=== PATIENT | female | born 1990 | race Caucasian/White ===

== ENCOUNTER 2020-01-01 20:03 | Emergency (ER) | payer OTHER ==
[2020-01-01 21:01] LABS: EOSINOPHILS % (AUTO) 0.7 %; HGB - HEMOGLOBIN 12.7 g/dL (12.0-16.0); LYMPHOCYTES # (AUTO) 0.7 10^3/uL (1.5-3.5); LYMPHOCYTES % (AUTO) 21.4 %; MEAN CORPUSCULAR HEMOGLOBIN 30.3 pg (27.0-31.0); MEAN CORPUSCULAR HGB CONC 33.3 g/dL (32.0-36.0); MEAN CORPUSCULAR VOLUME 90.9 fL (81.0-99.0); MEAN PLATELET VOLUME 11.2 fL (7.9-10.8); MONOCYTES # (AUTO) 0.6 10^3/uL (0.0-1.0); MONOCYTES % (AUTO) 20.4 %; NEUTROPHILS # (AUTO) 1.7 10^3/uL (1.5-6.6); NEUTROPHILS % (AUTO) 56.2 %; PLT - PLATELET COUNT 168 10^3/uL (130-450); RED BLOOD COUNT 4.19 10^6/uL (4.20-5.40); RED CELL DISTRIBUTION WIDTH 11.8 % (12.0-15.0)
[2020-01-01 21:02] LABS: GLUCOSE, URINE (UA) NEGATIVE (NEGATIVE); KETONES,URINE (UA) NEGATIVE (NEGATIVE); LEUKOCYTE ESTERASE, URINE NEGATIVE (NEGATIVE); NITRITE,URINE NEGATIVE (NEGATIVE); OCCULT BLOOD,URINE LARGE (NEGATIVE); PH,URINE 6.5 PH (5.0-7.5); PROTEIN,URINE 100 mg/dL (NEGATIVE); UROBILINOGEN,URINE 1 (NORMAL) E.U./dL (NORMAL)
[2020-01-01] MEDS ORDERED: KETOROLAC 30 MG/ML VIAL IVP STA (21:02)
[2020-01-01 21:03] LABS: CLARITY,URINE CLEAR (CLEAR); HCG UR QUAL NEGATIVE
[2020-01-01 21:05] LABS: BILIRUBIN,URINE NEGATIVE (NEGATIVE); ICTOTEST,URINE NEGATIVE
--- NOTE | 2020-01-01 21:05 | ED Physician Documentation ---
History of Present Illness - Stated complaint Stated Complaint: FEMALE - Chief complaint Chief Complaint: Abd Pain - History obtained from History obtained from: Patient - History of Present Illness Timing: Today Pain level max: 5 Pain level now: 4 - Additonal information Additional information: Patient states she had a recent sexual encounter with a new partner. Since then has "milky" vaginal discharge and lower abdominal pain. No itching. Nothing makes it better or worse. Has had diarrhea. Review of Systems Ten Systems: 10 systems reviewed and negative Constitutional: denies: Fever, Chills Nose: denies: Rhinorrhea / runny nose, Congestion Respiratory: denies: Cough GI: reports: Diarrhea. denies: Nausea, Vomiting : reports: Dysuria, Frequency. denies: Hesitancy, Now EGA Skin: denies: Rash Musculoskeletal: denies: Neck pain, Back pain Neurologic: denies: Focal weakness, Numbness, Headache PD PAST MEDICAL HISTORY - Past Medical History Past Medical History: No Cardiovascular: None Respiratory: None Neuro: None Endocrine/Autoimmune: None GI: None PATIENT RESOURCE SPECIALIST: None : None HEENT: None Psych: Depression, Anxiety Musculoskeletal: None Derm: None - Past Surgical History Past Surgical History: No /PATIENT RESOURCE SPECIALIST: Tubal ligation - Present Medications Home Medications: Ambulatory Orders Medication Instructions Recorded Confirmed Albuterol Sulfate [Proventil Hfa 1 - 2 puffs IH Q4H PRN #1 02/20/16 Inhaler] [email or web address] Azithromycin [Zithromax] 250 mg PO DAILY #6 tablet 02/20/16 - Allergies Allergies/Adverse Reactions: Allergies Allergy/AdvReac Type Severity Reaction Status Date / Time No Known Drug Allergies Allergy Verified 01/01/20 20:29 - Social History Does the pt smoke?: No Smoking Status: Never smoker Does the pt drink ETOH?: Yes ETOH Use: Wine, Liquor Does the pt have substance abuse?: No Substance Use and Type: Marijuana - Immunizations Immunizations are current?: Yes PD ED PE NORMAL - Vitals Vital signs reviewed: Yes - General General: Alert and oriented X 3, No acute distress, Well developed/nourished - HEENT HEENT: Moist mucous membranes - Neck Neck: Supple, no meningeal sign - Cardiac Cardiac: RRR, Strong equal pulses - Respiratory Respiratory: No respiratory distress, Clear bilaterally - Abdomen Abdomen: Soft, Non distended, Other (Tender to palpation over the bladder and uterus.) - Female Female : Other (Clear discharge from the cervical loss along with irritation of the cervix. Positive cervical motion tenderness. Positive adnexal tenderness bilaterally.) - Back Back: No CVA TTP - Derm Derm: Warm and dry - Extremities Extremities: No edema - Neuro Neuro: Alert and oriented X 3 Results - Vitals Vitals: Vital Signs - 24 hr 01/01/20 01/01/20 01/01/20 20:24 21:03 22:09 Temperature 37.3 C 37.7 C H 37.8 C H Heart Rate 98 78 18 L Respiratory 14 18 18 Rate Blood Pressure 121/90 H 122/79 127/78 O2 Saturation 97 100 96 Oxygen O2 Source Room air - Labs Labs: Microbiology 01/01/20 21:12 Wet Prep - Final Genital - Vaginal Laboratory Tests 01/01/20 01/01/20 01/01/20 20:45 20:55 20:55 WBC 3.0 L RBC 4.19 L Hgb 12.7 Hct 38.1 MCV 90.9 MCH 30.3 MCHC 33.3 RDW 11.8 L Plt Count 168 MPV 11.2 H Neut # (Auto) 1.7 Lymph # (Auto) 0.7 L [place] # (Auto) 0.6 Eos # (Auto) 0.0 Baso # (Auto) 0.0 Absolute Nucleated RBC 0.00 Nucleated RBC % 0.0 Sodium 139 Potassium 3.4 L Chloride 107 Carbon Dioxide 27 Anion Gap 5.0 L BUN 12 Creatinine 0.9 Estimated GFR (MDRD) 74 L Glucose 91 Calcium 8.7 Total Bilirubin 0.7 AST 18 ALT 17 Alkaline Phosphatase 32 L Total Protein 6.4 L Albumin 3.7 Globulin 2.7 Albumin/Globulin Ratio 1.4 Lipase 28 Urine Color BROWN Urine Clarity CLEAR Urine pH 6.5 Ur Specific [place] 1.020 Urine Protein 100 H Urine Glucose (UA) NEGATIVE Urine Ketones NEGATIVE Urine Occult Blood LARGE H Urine Nitrite NEGATIVE Urine Bilirubin NEGATIVE Urine Urobilinogen 1 (NORMAL) Ur Leukocyte Esterase NEGATIVE Urine RBC 11-25 H Urine WBC 6-10 H Ur Squamous Epith Cells RARE Squamous Urine Bacteria Few Ur Microscopic Review INDICATED Urine Culture Comments INDICATED Urine HCG, Qual NEGATIVE PD MEDICAL DECISION MAKING - ED course Complexity details: reviewed results, re-evaluated patient, considered differential, d/w patient ED course: Patient with what appears to be likely PID. Likely early. Possible urethritis. Given Rocephin and azithromycin. We will see how she progresses. Testing was sent for gonorrhea and chlamydia. Patient is otherwise well-appearing, n ontoxic. Afebrile. If she is not fully improved, would consider giving doxycycline for a longer course of treatment. Patient counseled regarding signs and symptoms for which I believe and urgent re-evaluation would be necessary. Patient with good understanding of and agreement to plan and is comfortable going home at this time This document was made in part using voice recognition software. While efforts are made to proofread this document, sound alike and grammatical errors may occur. Departure - Departure Disposition: 01 Home, Self Care Clinical Impression: Pelvic pain Condition: Good Instructions: ED Pelvic Pain [facility] Follow-Up: KADEN WEBBER [Primary Care Provider] - Within 1 week Comments: Return if you worsen. You have been tested for gonorrhea and chlamydia tonight. We will call you if these are positive. If they are positive you will need to have any sexual partners tested and treated as well. Discharge Date/Time: 01/01/20 22:11
[2020-01-01 21:08] LABS: BACTERIA,URINE Few /HPF (None Seen); SQUAMOUS EPITHELIAL CELL,UR RARE Squamous (<= Few)
[2020-01-01 21:12] LABS: ALBUMIN 3.7 g/dL (3.2-5.5); ALBUMIN/GLOBULIN RATIO 1.4 (1.0-2.2); BILIRUBIN,TOTAL 0.7 mg/dL (0.2-1.0); CALCIUM 8.7 mg/dL (8.5-10.3); CREATININE 0.9 mg/dL (0.4-1.0); TOTAL PROTEIN 6.4 g/dL (6.7-8.2)
[2020-01-01] MEDS ORDERED: AZITHROMYCIN 250 MG TABLET PO STA (21:27)
[2020-01-01] MEDS ORDERED: cefTRIAXone 1 GM VIAL IVP STA (21:27)
[2020-01-01 22:10] VITALS: BP 127/78
== END 2020-01-01 22:11 | disposition home or self-care (01) ==
LOC: ED 20:03
DX: R10.2 Pelvic and perineal pain (principal); Z20.2 Contact with and (suspected) exposure to infections with a predominantly sexual mode of transmission
CPT/HCPCS: 36415; 80053; 81001; 81025; 81599; 83690; 85025; 87086; 87210; 96374; 96375; 99283; 99284; A9270; 81003; 87491; 87591; 87661

== ENCOUNTER 2021-08-25 17:31 | Emergency (ER) | payer OTHER ==
[2021-08-25] MEDS ORDERED: ACETAMINOPHEN 325 MG TABLET PO STA (17:57)
--- NOTE | 2021-08-25 18:29 | XRAY Report ---
PROCEDURE: Chest 1 View X-Ray INDICATIONS: cough and fever TECHNIQUE: One view of the chest was acquired. COMPARISON: None FINDINGS: Surgical changes and devices: None. Lungs and pleura: No pleural effusions or pneumothorax. Lungs are clear. Mediastinum: Mediastinal contours appear normal. Heart size is normal. Bones and chest wall: No suspicious bony lesions. Overlying soft tissues appear unremarkable. IMPRESSION: No acute pulmonary process. Reviewed by: Madelin Gaines MD on 08/25/2021 5:28 PM [facility]HEL[facility] Approved by: Madelin Gaines MD on 08/25/2021 5:28 PM OPHELIA Station ID: [id number]
[2021-08-25 19:26] LABS: BILIRUBIN,URINE NEGATIVE (NEGATIVE); GLUCOSE, URINE (UA) NEGATIVE (NEGATIVE); KETONES,URINE (UA) NEGATIVE (NEGATIVE); LEUKOCYTE ESTERASE, URINE NEGATIVE (NEGATIVE); NITRITE,URINE NEGATIVE (NEGATIVE); OCCULT BLOOD,URINE LARGE (NEGATIVE); PROTEIN,URINE >=300 mg/dL (NEGATIVE); UROBILINOGEN,URINE 0.2 (NORMAL) E.U./dL (NORMAL)
[2021-08-25 19:27] LABS: CLARITY,URINE HAZY (CLEAR)
[2021-08-25 19:29] LABS: HCG UR QUAL NEGATIVE
[2021-08-25 19:32] LABS: RAPID STREP SCREEN Negative (Negative)
[2021-08-25 19:35] LABS: BACTERIA,URINE Rare /HPF (None Seen); RBC,URINE TNTC /HPF (0-5); SQUAMOUS EPITHELIAL CELL,UR RARE Squamous (<= Few)
--- NOTE | 2021-08-25 19:35 | ED Physician Documentation ---
History of Present Illness - Stated complaint Stated Complaint: BODY ACHES,FEVER,COUGH - Chief complaint Chief Complaint: General - History obtained from History obtained from: Patient - Additonal information Additional information: Patient is a 30-year-old female with no significant past medical history presenting for evaluation of fever since last Wednesday (5 days), body aches and nonproductive cough.Patient is not vaccinated for COVID. She took a home COVID test on which was negative. She has continued to work.Due to having continued fever and having to go to work she is presenting to the emergency department for an evaluation. She last used an antipyretic at 4:00 this morning. She does report improvement in her symptoms when she does use Tylenol. She denies chest pain, difficulty breathing, abdominal pain, vomiting, diarrhea, dysuria. She denies vaginal discharge. She is currently on her menstrual cycle.She denies any known sick contacts. Review of Systems Constitutional: reports: Fever, Myalgias Nose: reports: Congestion Throat: reports: Sore throat Cardiac: denies: Chest pain / pressure Respiratory: reports: Cough. denies: Dyspnea GI: denies: Abdominal Pain, Vomiting : reports: Vaginal bleeding (On menses). denies: Dysuria, Hematuria Skin: denies: Rash Musculoskeletal: denies: Neck pain, Back pain Neurologic: denies: Syncope, Headache PD PAST MEDICAL HISTORY - Past Medical History Cardiovascular: None Respiratory: None Neuro: None Endocrine/Autoimmune: None GI: None PEOPLESOFT PROGRAMMER: None : None HEENT: None Psych: Depression, Anxiety Musculoskeletal: None Derm: None - Past Surgical History Past Surgical History: No /PEOPLESOFT PROGRAMMER: Tubal ligation - Present Medications Home Medications: Ambulatory Orders Medication Instructions Recorded Confirmed Albuterol Sulfate [Proventil Hfa 1 - 2 puffs IH Q4H PRN #1 02/20/16 Inhaler] [email or web address] Azithromycin [Zithromax] 250 mg PO DAILY #6 tablet 02/20/16 - Allergies Allergies/Adverse Reactions: Allergies Allergy/AdvReac Type Severity Reaction Status Date / Time No Known Drug Allergies Allergy Verified 01/01/20 20:29 - Social History Does the pt smoke?: No Smoking Status: Never smoker Does the pt drink ETOH?: Yes Does the pt have substance abuse?: No - Immunizations Immunizations are current?: Yes PD ED PE NORMAL - General General: Alert and oriented X 3, No acute distress, Well developed/nourished - HEENT HEENT: Atraumatic, PERRL, EOMI, Moist mucous membranes, Pharynx benign (No oral abscess or exudate,) - Neck Neck: Supple, no meningeal sign - Cardiac Cardiac: RRR, No murmur, Strong equal pulses - Respiratory Respiratory: No respiratory distress, Clear bilaterally - Abdomen Abdomen: Normal bowel sounds, Soft, Non tender, Non distended - Back Back: No CVA TTP - Derm Derm: Normal color, No rash - Extremities Extremities: No edema - Neuro Neuro: Alert and oriented X 3, Normal speech - Psych Psych: Normal mood, Normal affect Results - Vitals Vitals: Vital Signs - 24 hr 08/25/21 08/25/21 08/25/21 17:50 17:54 19:54 Temperature 39.4 C H 39.4 C H 37.6 C Heart Rate 110 H 110 H 98 Respiratory 18 18 16 Rate Blood Pressure 143/78 H 143/78 H 132/90 H O2 Saturation 100 100 98 Oxygen O2 Source Room air - Labs Labs: Laboratory Tests 08/25/21 08/25/21 08/25/21 19:16 19:16 19:16 Urine Color DARK YELLOW Urine Clarity HAZY Urine pH 6.0 Ur Specific [place] 1.020 Urine Protein >=300 H Urine Glucose (UA) NEGATIVE Urine Ketones NEGATIVE Urine Occult Blood LARGE H Urine Nitrite NEGATIVE Urine Bilirubin NEGATIVE Urine Urobilinogen 0.2 (NORMAL) Ur Leukocyte Esterase NEGATIVE Urine RBC TNTC H Urine WBC 0-3 Ur Squamous Epith Cells RARE Squamous Urine Bacteria Rare Ur Microscopic Review INDICATED Urine Culture Comments NOT INDICATED Urine HCG, Qual NEGATIVE SARS-CoV-2 (PCR) DETECTED A Group A Strep Rapid Negative PD MEDICAL DECISION MAKING - ED course Complexity details: reviewed results, re-evaluated patient, d/w patient ED course: Patient is a 30-year-old female presenting for evaluation of fever for 5 days. She is febrile and tachycardic and does meet sepsis criteria but does not appear septic. Given her constellation of symptoms I suspect viral etiology. Strep swab sent as patient reports sore throat although pharyngeal exam is benign. Strep swab is negative. Urinalysis also negative for infection. Patient has no abdominal tenderness. Chest x-ray is clear and does not have signs of infiltrate. Patient's COVID swab is positive. Her oxygenation saturations are normal. She does not appear labored in her breathing. As her symptoms have been present for At least 5 days she is not a candidate for oral antivirals. Patient also does not have Any known risk factors to consider her high risk for progression to severe disease. Patient was counseled regarding continuing with supportive care. Her tachycardia improved with fever control. She is able to hydrate orally.Patient is aware of return precautions as well as quarantine recommendations per current CDC guidelines. Departure - Departure Disposition: 01 Home, Self Care Clinical Impression: COVID-19 Condition: Stable Instructions: COVID-19 [facility] Comments: Brandi - You were evaluated today for a fever and found to have COVID-19. Fortunately your oxygen saturations are normal and you do not require being hospitalized.Please continue using Motrin or Tylenol to control your fevers and staying hydrated. Please go to the following website For the latest information regarding your quarantine period. https://www.cdc.gov/coronavirus/2019-ncov/your-health/quarantine-isolation.html If anytime it feels that you have worsening breathing, Feel dizzy, chest pain, have any concerns please return to the emergency department. Forms: Activity restrictions Discharge Date/Time: 08/25/21 20:49
[2021-08-25 19:36] LABS: WBC,URINE 0-3 /HPF (0-5)
[2021-08-25 20:41] VITALS: BP 132/90
== END 2021-08-25 20:49 | disposition home or self-care (01) ==
LOC: ED 17:31
DX: U07.1 COVID-19 (principal)
CPT/HCPCS: 71045; 81001; 81025; 87070; 87430; 87635; 99282; 99284; A9270; 81003; 87086

== ENCOUNTER 2023-07-17 03:03 | Emergency (ER) | payer OTHER ==
[2023-07-17 03:27] VITALS: O2SAT 99
[2023-07-17 03:40] LABS: BILIRUBIN,URINE MODERATE (NEGATIVE); GLUCOSE, URINE (UA) NEGATIVE (NEGATIVE); KETONES,URINE (UA) 15 mg/dL (NEGATIVE); LEUKOCYTE ESTERASE, URINE TRACE (NEGATIVE); NITRITE,URINE POSITIVE (NEGATIVE); OCCULT BLOOD,URINE LARGE (NEGATIVE); PH,URINE 6.5 PH (5.0-7.5); PROTEIN,URINE >=300 mg/dL (NEGATIVE); UROBILINOGEN,URINE 4 E.U./dL (NORMAL)
[2023-07-17 03:52] LABS: CLARITY,URINE CLOUDY (CLEAR); RAPID STREP SCREEN Negative (Negative)
--- NOTE | 2023-07-17 03:52 | ED Physician Documentation ---
PD HPI HEENT - Stated complaint Stated Complaint: FEVER/SORE THROAT/BACK PX - Chief complaint Chief Complaint: Heent - History obtained from History obtained from: Patient - Additional information Additional information: HPI from patient. Patient complains of fever, low back pain (across the lower back), sore throat, generalized headache, bilateral ear pain, and burning dysuria. These symptoms started 2 days ago. Tmax at home was 101.4 (temporal). Denies cough, denies dyspnea, denies abdominal pain, denies n/v. Review of Systems Constitutional: reports: Fever, Chills, Sweats Respiratory: denies: Dyspnea, Cough GI: denies: Abdominal Pain, Nausea, Vomiting : reports: Dysuria PD PAST MEDICAL HISTORY - Past Medical History Past Medical History: Yes Cardiovascular: None Respiratory: None Neuro: None Endocrine/Autoimmune: None GI: None CONTRACT IMPLEMENTATION ANALYST: None : Other HEENT: None Psych: Depression, Anxiety Musculoskeletal: None Derm: None Other Past Medical History: UTI - Past Surgical History Past Surgical History: No /CONTRACT IMPLEMENTATION ANALYST: Tubal ligation - Present Medications Home Medications: Ambulatory Orders Medication Instructions Recorded Confirmed Ciprofloxacin HCl [Cipro] 500 mg PO BID #14 tablet 07/17/23 - Allergies Allergies/Adverse Reactions: Allergies Allergy/AdvReac Type Severity Reaction Status Date / Time No Known Drug Allergies Allergy Verified 07/17/23 03:25 - Social History Does the pt smoke?: No Smoking Status: Never smoker Does the pt drink ETOH?: Yes Does the pt have substance abuse?: No - Immunizations Immunizations are current?: Yes - POLST Patient has POLST: No PD ED PE NORMAL - Vitals Vital signs reviewed: Yes - General General: Alert and oriented X 3, No acute distress, Well developed/nourished - Neck Neck: Supple, no meningeal sign - Cardiac Cardiac: RRR, No murmur - Respiratory Respiratory: No respiratory distress, Clear bilaterally - Abdomen Abdomen: Soft, Non tender, Non distended - Back Back: No CVA TTP PD ED PE EXPANDED - HEENT HEENT: Pharyngeal erythema (mild symmetric posterior oropharyngeal erythema and edema without exudate) Results - Vitals Vitals: Vital Signs - 24 hr 07/17/23 07/17/23 07/17/23 03:21 04:53 04:55 Temperature 38.1 C H 37.7 C 37.7 C Heart Rate 120 H 96 Respiratory 18 16 Rate Blood Pressure 133/84 H 127/73 O2 Saturation 99 99 Oxygen O2 Source Room air - Labs Labs: Laboratory Tests 07/17/23 07/17/23 07/17/23 03:30 03:30 03:30 Urine Color BROWN Urine Clarity CLOUDY Urine pH 6.5 Ur Specific [place] 1.025 Urine Protein >=300 H Urine Glucose (UA) NEGATIVE Urine Ketones 15 H Urine Occult Blood LARGE H Urine Nitrite POSITIVE H Urine Bilirubin MODERATE H Urine Urobilinogen 4 H Ur Leukocyte Esterase TRACE H Urine RBC TNTC H Urine WBC 6-10 H Urine WBC Clumps PRESENT Ur Squamous Epith Cells FEW Squamous Amorphous Sediment Marked Urine Bacteria Moderate H Urine Casts 3-5 RBC Casts Ur Microscopic Review INDICATED Urine Culture Comments INDICATED Urine HCG, Qual Nasal Adenovirus (PCR) NOT DETECTED Nasal B. parapertussis DNA (PCR) NOT DETECTED Nasal Coronavir 229E PCR NOT DETECTED Nasal Coronavir HKU1 PCR NOT DETECTED Nasal Coronavir NL63 PCR NOT DETECTED Nasal Coronavir OC43 PCR NOT DETECTED Nasal Enterovir/Rhinovir PCR NOT DETECTED Nasal Influenza B PCR NOT DETECTED Nasal Influenza A PCR NOT DETECTED Nasal Parainfluen 1 PCR NOT DETECTED Nasal Parainfluen 2 PCR NOT DETECTED Nasal Parainfluen 3 PCR NOT DETECTED Nasal Parainfluen 4 PCR NOT DETECTED Nasal RSV (PCR) NOT DETECTED Nasal B.pertussis DNA PCR NOT DETECTED Nasal C.pneumoniae (PCR) NOT DETECTED Joe Human Metapneumo PCR NOT DETECTED Nasal M.pneumoniae (PCR) NOT DETECTED Nasal SARS-CoV-2 (PCR) NOT DETECTED Group A Strep Rapid Negative 07/17/23 03:30 Urine Color Urine Clarity Urine pH Ur Specific [place] Urine Protein Urine Glucose (UA) Urine Ketones Urine Occult Blood Urine Nitrite Urine Bilirubin Urine Urobilinogen Ur Leukocyte Esterase Urine RBC Urine WBC Urine WBC Clumps Ur Squamous Epith Cells Amorphous Sediment Urine Bacteria Urine Casts Ur Microscopic Review Urine Culture Comments Urine HCG, Qual NEGATIVE Nasal Adenovirus (PCR) Nasal B. parapertussis DNA (PCR) Nasal Coronavir 229E PCR Nasal Coronavir HKU1 PCR Nasal Coronavir NL63 PCR Nasal Coronavir OC43 PCR Nasal Enterovir/Rhinovir PCR Nasal Influenza B PCR Nasal Influenza A PCR Nasal Parainfluen 1 PCR Nasal Parainfluen 2 PCR Nasal Parainfluen 3 PCR Nasal Parainfluen 4 PCR Nasal RSV (PCR) Nasal B.pertussis DNA PCR Nasal C.pneumoniae (PCR) Joe Human Metapneumo PCR Nasal M.pneumoniae (PCR) Nasal SARS-CoV-2 (PCR) Group A Strep Rapid PD Medical Decision Making - ED course Complexity details: considered differential, d/w patient ED course: Rapid strep is negative. Respiratory PCR panel is negative for the viruses tested on this panel. Urine HCG negative. Urinalysis has a number of abnormalities including positive for nitrites, with microscopy positive for red blood cells, white blood cells in clumps, and moderate bacteria without squamous cells. She is entirely nontender on abdominal exam. At this point, I suspect that her symptoms are due to a UTI that has ascended to pyelonephritis which, in turn, would account for the fever and the generalized/systemic symptoms. She does not have any significant CVA tenderness and is in NAD and thus will treat as early pyelonephritis with antibiotics. She is given the first dose of ciprofloxacin in the emergency department and I have electronically submitted a prescription for a 1-week course of Cipro to the patient's pharmacy of choice. Return precautions were reviewed. Departure - Departure Disposition: 01 Home, Self Care Clinical Impression: Pyelonephritis Condition: Good Instructions: ED Kidney Infec Female Prescriptions: Ciprofloxacin HCl [Cipro] 500 mg PO BID #14 tablet Comments: You tested negative for strep throat. The nasal swab tested negative for a number of viruses that are tested on our viral panel, including COVID and influenza. Your urinalysis had a number of abnormalities which suggest a urinary tract infection. Simple bladder infections would not cause fever and thus I suspect you might be in the early stages of a kidney infection, which typically starts in the bladder and works its way up to one or both kidneys. To treat this infection, you were given the first dose of an antibiotic (ciprofloxacin) in the emergency department, and I have electronically submitted a prescription for a 1-week course of this antibiotic to the [facility] pharmacy in [place]. Forms: PCP List Discharge Date/Time: 07/17/23 05:00
[2023-07-17 03:53] LABS: AMORPHOUS SEDIMENT,UR Marked /LPF; BACTERIA,URINE Moderate /HPF (None Seen); RBC,URINE TNTC /HPF (0-5); SQUAMOUS EPITHELIAL CELL,UR FEW Squamous (<= Few); WBC CLUMPS,URINE PRESENT
[2023-07-17 03:54] LABS: CASTS, URINE 3-5 RBC Casts /LPF
[2023-07-17 04:30] LABS: B. PARAPERTUSSIS- RESP PCR PAN NOT DETECTED; B. PERTUSSIS- RESP PCR PANEL NOT DETECTED; C. PNEUMONIAE- RESP PCR PANEL NOT DETECTED; CORONAVIRUS 229E-RESP PCR NOT DETECTED; CORONAVIRUS HKU1-RESP PCR NOT DETECTED; CORONAVIRUS NL63-RESP PCR NOT DETECTED; CORONAVIRUS OC43-RESP PCR NOT DETECTED; HUMAN METAPNEUMOVIRUS NOT DETECTED; INFLUENZA A- RESP PCR PANEL NOT DETECTED; INFLUENZA B - RESP PCR PANEL NOT DETECTED; M. PNEUMONIAE- RESP PCR PANEL NOT DETECTED; PARAINFLUENZA VIRUS 1 NOT DETECTED; PARAINFLUENZA VIRUS 2 NOT DETECTED; PARAINFLUENZA VIRUS 3 NOT DETECTED; PARAINFLUENZA VIRUS 4 NOT DETECTED; RHINOVIRUS/ENTEROVIRUS NOT DETECTED; RSV- RESP PCR PANEL NOT DETECTED; SARS-CoV-2 -RESP PCR PANEL NOT DETECTED
[2023-07-17 04:34] LABS: HCG UR QUAL NEGATIVE
[2023-07-17] MEDS: CIPROFLOXACIN 250 MG TABLET PO STA (04:53)
[2023-07-17] MEDS: IBUPROFEN 600 MG TABLET PO STA (04:53)
[2023-07-17 05:06] VITALS: BP 127/73
--- NOTE | 2023-07-19 14:59 | ED Physician Documentation ---
ED Addendum - Addendum Addendum: 07/19/23 14:57 The patient was seen on the 2 days ago for primarily urinary tract and symptoms. Significant urinalysis which subsequently cultured E. coli sensitive to Cipro. Was discharged on Cipro. However had a secondary complaint of sore throat on the visit. Negative strep test was done. However subsequently the throat culture is showing positive group C strep. At this point since she is already been on treatment with the Cipro and her UTI is sensitive to that, I would continue with the Cipro. However I would add on Keflex or penicillin for the strep throat. Given her E. coli was also sensitive to cephalosporins, I guess I would lean towards treating the strep throat with Keflex to provide double coverage for the urinary tract as well even though she is on the Cipro. I sent her prescriptions to her preferred pharmacy[facility] in [place]. I will have nursing call to I will notify her.
== END 2023-07-17 05:00 | disposition home or self-care (01) ==
LOC: ED 03:03
DX: N12 Tubulo-interstitial nephritis, not specified as acute or chronic (principal)
CPT/HCPCS: 81001; 81025; 87070; 87077; 87086; 87181; 87430; 87633; 99283; 99284; A9270; 81003